=== PATIENT | female | born 1980 | race Caucasian/White ===

== ENCOUNTER 2017-10-12 09:25 | Emergency (ER) | payer OTHER ==
[~2017-10-12] VITALS: Ht 182.9 cm; Wt 169.5 kg
[2017-10-12 09:27] VITALS: BP 137/81
[2017-10-12] MEDS ORDERED: IBUPROFEN 200 MG TABLET ONE (10:29)
[2017-10-12] MEDS ORDERED: IBUPROFEN 200 MG TABLET PO ONE (11:00)
== END 2017-10-12 12:27 | disposition home or self-care (01) ==
LOC: ED 10:15
DX: S16.1XXA Strain of muscle, fascia and tendon at neck level, initial encounter (principal); S46.811A Strain of other muscles, fascia and tendons at shoulder and upper arm level, right arm, initial encounter; S76.111A Strain of right quadriceps muscle, fascia and tendon, initial encounter; E11.9 Type 2 diabetes mellitus without complications; V89.2XXA Person injured in unspecified motor-vehicle accident, traffic, initial encounter; Y93.89 Activity, other specified; Y92.89 Other specified places as the place of occurrence of the external cause; Y99.9 Unspecified external cause status
CPT/HCPCS: 72125; 99284

== ENCOUNTER → 2021-04-03 | Outpatient (CLI) | payer OTHER ==
[~2021-04-03] MED LIST: EMPA25TA PO; FENO40TA4 PO; LISI2.5T PO; METF500T17 PO
[2021-04-03 08:27] LABS: BASOPHILS % (AUTO) 1 % (0-1); EOSINOPHILS % (AUTO) 5 % (1-7); LYMPHOCYTES % (AUTO) 21 % (22-44); MEAN CORPUSCULAR HEMOGLOBIN 31.7 pg (27.0-34.8); MEAN CORPUSCULAR HGB CONC 34.3 g/dL (32.4-35.8); MEAN PLATELET VOLUME 8.1 fL (7.4-10.4); MONOCYTES % (AUTO) 6 % (2-9); NEUTROPHILS % (AUTO) 68 % (42-75); PLATELET COUNT 303 x10^3/uL (130-400); RED BLOOD COUNT 4.88 x10^6/uL (3.82-5.3); RED CELL DISTRIBUTION WIDTH 13.7 % (9.6-15.2)
[2021-04-03 08:28] LABS: MD NO
[2021-04-03 08:39] LABS: ALBUMIN 3.9 g/dL (3.4-5.0); ANION GAP 4 mmol/L (5-15); CALCIUM 9.2 mg/dL (8.5-10.1); CHLORIDE 105 mmol/L (98-107); CHOLESTEROL, TOTAL 149 mg/dL (140-239); CREATININE 0.85 mg/dL (0.55-1.02); TOTAL IRON BINDING CAPACITY 323 mcg/dL (250-450)
[2021-04-03 09:06] LABS: % IRON SATURATION 29 % (20-55); ALANINE AMINOTRANSFERASE 23 U/L (12-78); ALKALINE PHOSPHATASE 54 U/L (45-117); BILIRUBIN,TOTAL 0.6 mg/dL (0.2-1.0); CHOL/HDL RATIO 3.5; HDL CHOL % 29 % (28-40); HDL CHOLESTEROL (DIRECT) 43 mg/dL (40-60); IRON LEVEL 93 mcg/dL (50-170); LDL CHOLESTEROL,CALCULATED 72 mg/dL (54-169); LDL/HDL RATIO 1.7 (0.5-3.0); PREALBUMIN 27.6 mg/dL (20.0-40.0); TOTAL PROTEIN 7.8 g/dL (6.4-8.2); TRANSFERRIN 240 mg/dL (200-360); TRIGLYCERIDES 169 mg/dL (50-200); VLDL CHOLESTEROL 34 mg/dL (0-25)
[2021-04-03 09:19] LABS: FOLATE LEVEL > 20.0 ng/mL (3.1-17.5)
== END | disposition home or self-care (01) ==
LOC: STAR 07:14
PROVIDERS: ATTEND Thoracic Surgery (Cardiothoracic Vascular Surgery)
DX: Z01.812 Encounter for preprocedural laboratory examination (principal); Z20.822 Contact with and (suspected) exposure to COVID-19
CPT/HCPCS: 36415; 71046; 80053; 80061; 82306; 82607; 82728; 82746; 83540; 83550; 83970; 84134; 84425; 84466; 85025; 93005; U0003